=== PATIENT | female | born 1985 | race Caucasian/White ===

== ENCOUNTER 2023-10-31 12:30 | Emergency (ER) | payer BC, SELFPAY ==
[2023-10-31 12:34] VITALS: BP 140/97; BMI 30.6
[2023-10-31 13:04] LABS: % Basophils 0.9 % (0-2); % Lymphocytes 28.9 % (20.5-51.1); % Monocytes 13.7 % (1.7-9.3); % Neutrophils 56.5 % (42.2-75.2); Absolute Monocytes 0.5 10^3/uL (0.1-0.6); Absolute Neutrophils 1.9 10^3/uL (1.4-6.5); Hematocrit 38.7 % (37.0-47.0); Hemoglobin 13.5 g/dL (12.0-16.0); Mean Corp Hgb Conc. 34.9 g/dL (33.0-37.0); Mean Corpuscular Hgb 28.6 pg (27.0-31.0); Mean Platelet Volume 9.8 fL (7.4-10.4); Nucleated Red Blood Cells % 0 %; Platelet Count 195 10^3/uL (130-400); Red Blood Cell Count 4.72 10^6/uL (4.20-5.40); Red Cell Dist. Width 12.3 % (11.5-14.5); White Blood Cell Count 3.4 10^3/uL (4.8-10.8)
[2023-10-31 13:05] LABS: ALT (SGPT) 26 U/L (0-35); AST (SGOT) 36 U/L (14-36); Albumin 4.2 g/dl (3.5-5.0); Alkaline Phosphatase 55 U/L (38-126); Blood Urea Nitrogen 12 mg/dl (7-17); Calcium 9.1 mg/dl (8.4-10.2); Carbon Dioxide 28 mmol/L (22-30); Chloride 101 mmol/L (98-107); Estimated Creatinine Clearance 107 ml/min; Glucose 103 mg/dl (70-99); Lipase 84 U/L (23-300); Potassium 3.9 mmol/L (3.5-5.1); Sodium 136 mmol/L (135-145); Total Bilirubin 0.6 mg/dl (0.2-1.3); eGFR > 60.00
--- NOTE | 2023-10-31 14:43 | ED.GENMED ---
History of Present Illness
General
Chief Complaint: Skin Problem
Source: patient
Time Seen by Provider: 10/31/23 14:37
History of Present Illness
History of Present Illness:
38-year-old female presenting to the emergency department for evaluation of a low-grade fever, chills and joint pains since October 22. 2 days ago patient went to urgent care with concern for possible Lyme disease after she notes she was bit by a tick
on her back a few days prior to all the symptoms starting. She reports that the urgent care told her that they felt her symptoms were more likely related to a URI and that she would be feeling better in a few days. Patient had a backache last
night so was using a heating pad and then awoke this morning noticing a rash to her mid back. She was advised to come to the ER for further evaluation. Patient has no other concerns at this time.
Past History
Past History
ED Past Medical History: None
ED Past Surgical History:
Social History
Tobacco: Non-smoker
Alcohol: Occasional
Drug: None
Personal:
Living: with family
Employment: Employed
Review of Systems
Review of Systems
All Other Systems: ROS reviewed and negative except as documented in HPI and ROS
Phy Exam
Physical Exam
Physical Exam:
GENERAL: Alert , in no apparent distress
EYE: conjunctiva clear
Head: Normocephalic atraumatic
NECK: Supple,
ENT: mmm.
LUNGS: no acute respiratory distress
NEUROLOGICAL: Alert and oriented
SKIN: Warm and dry, skin intact. Bull's-eye rash to mid back measuring approximately 4 cm in diameter. Nonraised, well-demarcated borders, central clearing
MUSCULOSKELETAL: well perfused.
PSYCH: Normal and appropriate interaction.
Scores
Heart Failure Risk
Heart Failure Risk Score: Not Applicable
Heart Score for Chest Pain Patients
STEMI patient?: Not applicable
Withdrawal Assessment of Alcohol
Withdrawal Assessment Completed?: Not applicable
Course
Orders/Labs/Results
Orders:
Orders
10/31/23 12:45
Complete Blood Count/With Diff Urgent
Comprehensive Metabolic Panel Urgent
Lipase Urgent
Lyme Progressive Urgent
Abnormal Lab Results
10/31/23
12:45
WBC 3.4 L 10^3/uL
(4.8-10.8)
Absolute Lymphs (auto) 1.0 L 10^3/uL
(1.2-3.4)
Monocytes % 13.7 H %
(1.7-9.3)
Glucose 103 H mg/dl
(70-99)
10/31/23 12:45
10/31/23 12:45
Vital Signs
Initial and Last Documented VS:
Initial Vital Signs
Temp Pulse Resp BP Pulse Ox
98.9 F 86 16 140/97 99
10/31/23 12:34 10/31/23 12:34 10/31/23 12:34 10/31/23 12:34 10/31/23 12:34
Last Documented Vital Signs
Temp Pulse Resp BP Pulse Ox
98.9 F 86 16 140/97 99
10/31/23 12:34 10/31/23 12:34 10/31/23 12:34 10/31/23 12:34 10/31/23 12:34
MDM/Problems Addressed
Differential Diagnosis Includes:
Erythema migrans secondary to Lyme's, viral syndrome, no concern for sepsis
MDM/Problems Addressed:
38-year-old female presenting the emergency department for low-grade fevers and polyarthropathy in the setting of recently being bit by a tick. Now with erythema migrans rash. Symptoms seem to be most suggestive of Lyme's disease. Will initiate
treatment with doxycycline. Patient advised on return precautions. Stable for discharge home otherwise
*Pulse Oximetry
Patient hypoxic: no
*Critical Care Note
Total Time (30-74mins, 75-104mins- exclusive of procedures): Not Applicable
ED Attending Note
-
Portions of this chart may have been created with voice recognition software.� Occasional wrong word or��sound alike� substitutions may have occurred due to the inherent limitations of voice recognition software.
Discharge Plan
Departure
Patient Disposition: Home (Routine Discharge)
Date of Disposition: 10/31/23
Time of Disposition: 14:44
Patient with high blood pressure during this ER visit?: Yes
Discharge Problem:
Acute Lyme disease
Instructions: Lyme Disease (DC)
Prescriptions:
New
doxycycline hyclate 100 mg tablet
100 mg PO BID 10 Days Qty: 20 0RF
Referrals:
Ben Jimenez MD [Family Provider] -
Interventions
Interventions:
*Risk Screen - Suicide Last Done: 10/31/23 12:34
*General Assessment Last Done: 10/31/23 14:24
*Neglect/Abuse Screening Last Done: 10/31/23 12:34
ED- Fall Risk Assessment Last Done: 10/31/23 14:23
*ED COVID-19 Vaccine History Last Done: 10/31/23 14:23
*Nursing Disposition Last Done: 10/31/23 14:48
ED-Skin Assessment Last Done: 10/31/23 14:23
Discharge Date and Time
Discharge Date/Time: 10/31/23 14:49
Print Language: MONGOLIAN
[2023-11-02 11:51] LABS: Lyme Antibody Screen, EIA Negative (Negative)
== END 2023-10-31 14:49 | disposition home or self-care (01) ==
LOC: EMR 12:30
PROVIDERS: EMERGENCY PHYSICIAN Student in an Organized Health Care Education/Training Program; FAMILY PHYSICIAN Internal Medicine
DX: A69.20 Lyme disease, unspecified (principal); R50.9 Fever, unspecified; M54.9 Dorsalgia, unspecified; S20.469A Insect bite (nonvenomous) of unspecified back wall of thorax, initial encounter; W57.XXXA Bitten or stung by nonvenomous insect and other nonvenomous arthropods, initial encounter; R03.0 Elevated blood-pressure reading, without diagnosis of hypertension
CPT/HCPCS: 99283; 80053; 83690; 85025; 86618